=== PATIENT | male | born 1990 | race Caucasian/White ===

== ENCOUNTER 2021-11-10 21:04 | Emergency (ER) | payer OTHER, SELFPAY ==
[2021-11-10 21:14] VITALS: BP 143/75; PULSE 59; RESP 17; TEMP 36.8; O2SAT 98; BMI 25.8
--- NOTE | 2021-11-11 01:23 | ED_ITS ---
HPI - Neck Pain/Injury General Chief Complaint: Neck Pain/Injury Stated Complaint: head injury Time Seen by Provider: 11/11/21 01:23 History of Present Illness HPI Narrative: Patient 31-year-old male presents today with having neck pain. It is point tenderness over the paraspinal muscle near the occipital area and also in the trapezius area. Denies any focal weakness. There is Nyes any fever chills. No photophobia. The pain is worse with movement. It is not changed with turning his head to the left or right. There was no trauma to the neck. Patient is from home. No focal weakness in the arms or legs. Related Data Previous Rx's Medication Instructions Recorded cyclobenzaprine 10 mg tablet 10 mg PO TID PRN pain #14 tabs 11/11/21 Allergies Allergy/AdvReac Type Severity Reaction Status Date / Time No Known Allergies Allergy Verified 11/10/21 21:14 Review of Systems Review of Systems: No fever no chills no chest pain or shortness breath no nausea no vomiting Yes all other systems are reviewed and are negative [facility] Past Medical History Attestation statement: The following information was validated with the patient. Physical Exam Vital Signs: Vital Signs: Last Vital Signs Temp 98.2 F 11/10/21 21:14 Pulse 59 11/10/21 21:14 Resp 17 11/10/21 21:14 BP 143/75 H 11/10/21 21:14 Pulse Ox 98 11/10/21 21:14 O2 Del Method 11/10/21 21:14 BMI result Body Mass Index 25.8 Appearance: Alert. Oriented X3. No acute distress. Eyes: Pupils equal, round and reactive to light. ENT: Pharynx normal. Neck: Normal inspection. Neck supple. No lymph nodes noted. No crepitus CVS: Normal heart rate and rhythm. Pulses normal. Normal S1 and S2 Respiratory: No respiratory distress. Breath sounds normal. No Wheezing. No rales Abdomen: Soft and nontender. No rigidity. No distention. good BS x4 Skin: Skin warm and dry. Normal skin color. Normal skin turgor. Extremities: No lower extremity edema. Neurovascular intact to all extremities. No Lacerations. No Rash Neuro: Oriented X 3. No motor deficit. No sensory deficit. Moving all extermities. No slurred speech MDM - Neck Pain/Injury MDM Narrative Medical decision making narrative: No fever no chills no headaches not consistent with meningitis. Pain in the paraspinal area. Likely muscle spasm. Will give muscle relaxant patient continued to use Motrin. No spinal tenderness elicited. No nausea no vomiting no focal weakness no head injury. Patient is to be discharged home. Discharge Plan Discharge Clinical Impression: Strain of neck muscle Patient Disposition: Home, Self-Care Instructions: Cervical Strain (ED) Prescriptions: New cyclobenzaprine 10 mg tablet 10 mg PO TID PRN (Reason: pain) Qty: 14 0RF Referrals: Physician,Unknown J [Primary Care Provider] -
== END 2021-11-11 02:16 | disposition home or self-care (01) ==
PROVIDERS: Emergency Provider Emergency Medicine Emergency Medical Services
DX: M54.2 Cervicalgia (principal); R51.9 Headache, unspecified
CPT/HCPCS: 99282; 99283